=== PATIENT | male | born 1995 | race Hispanic/Latino ===

== ENCOUNTER 2020-01-13 15:40 | Emergency (ER) | payer BC, OTHER ==
[2020-01-13 16:00] LABS: APPEARANCE,URINE Clear (CLEAR); BILIRUBIN,URINE Negative (NEGATIVE); COLOR,URINE Yellow (YELLOW); GLUCOSE, URINE (UA) Negative (NEGATIVE); KETONES,URINE Negative (NEGATIVE); LEUKOCYTE ESTERASE ,URINE Negative (NEGATIVE); NITRATE,URINE Negative (NEGATIVE); OCCULT BLOOD,URINE Trace (NEGATIVE); PH,URINE 6.5 (5.0-8.0); PROTEIN,URINE Negative (NEGATIVE)
[2020-01-13 16:17] LABS: BACTERIA,URINE Rare /HPF (None Seen); RBC,URINE 0-1 /HPF (0-1); SQUAMOUS EPITHELIAL CELL,UR Rare /HPF (0-2); WBC,URINE 0-1 /HPF (0-1)
[2020-01-13] MEDS ORDERED: LIDOCAINE 5% TOPICAL PATCH TP ONE (16:20)
[2020-01-13] MEDS ORDERED: KETOROLAC TROMETHAMINE 60 MG/2 ML VIAL ONE (16:20)
[2020-01-13 16:27] LABS: BASOPHILS % (AUTO) 0.4 % (0.0-5.0); EOSINOPHILS % (AUTO) 3.7 % (0.0-8.0); HEMATOCRIT 44.1 % (42-54); LYMPHOCYTES % (AUTO) 18.5 % (21.0-51.0); MEAN CORPUSCULAR HEMOGLOBIN 29.6 pg (27.0-33.0); MEAN CORPUSCULAR HGB CONC 33.1 g/dL (32.0-36.0); MEAN CORPUSCULAR VOLUME 89.3 fL (79-99); MONOCYTES % (AUTO) 7.5 % (3.0-13.0); NEUTROPHILS % (AUTO) 69.5 % (40.0-77.0); PLATELET COUNT (AUTO) 284 K/uL (130-400); RED BLOOD CELL COUNT(AUTO) 4.94 MIL/uL (4.50-6.20); RED CELL DISTRIBUTION WIDTH 12.8 % (11.0-15.5); WHITE BLOOD COUNT (AUTO) 11.2 K/uL (4.8-10.8)
[2020-01-13 16:38] LABS: CREATININE 0.9 mg/dL (0.5-1.5); POTASSIUM 3.8 mmol/L (3.5-5.1)
[2020-01-13 16:42] LABS: BILIRUBIN,TOTAL 0.5 mg/dL (0.2-1.0); TOTAL PROTEIN, SERUM 7.3 g/dL (6.0-8.3)
== END 2020-01-13 18:34 | disposition home or self-care (01) ==
LOC: EDH 15:40
DX: M62.830 Muscle spasm of back (principal)
CPT/HCPCS: 36415; 76770; 80053; 81001; 83690; 85025; 96372; 99284; J1885

== ENCOUNTER 2022-05-10 15:03 | Emergency (ER) | payer BC ==
[~2022-05-10] VITALS: Ht 177.8 cm; Wt 110.7 kg
[2022-05-10 15:04] VITALS: BP 133/86
[2022-05-10] MEDS ORDERED: KETOROLAC 30MG VIAL (30MG/ML) IM ONE (15:30)
[2022-05-10] MEDS ORDERED: AMOX500C2 PO (16:42)
== END 2022-05-10 17:01 | disposition home or self-care (01) ==
LOC: EDH 15:03
DX: J02.0 Streptococcal pharyngitis (principal); Z20.822 Contact with and (suspected) exposure to COVID-19; Z79.1 Long term (current) use of non-steroidal anti-inflammatories (NSAID)
CPT/HCPCS: 87635; 87880; 96372; 99284; C9803; J1885

== ENCOUNTER 2022-09-23 18:27 | Emergency (ER) | payer BC ==
[~2022-09-23] VITALS: Ht 177.8 cm; Wt 111.1 kg
[~2022-09-23 18:27] MED LIST: AMOX500C2 PO
[2022-09-23 18:31] VITALS: BP 130/82
[2022-09-23] MEDS ORDERED: IBUPROFEN 600 MG TABLET PO ONE (19:00)
[2022-09-23] MEDS ORDERED: IBUPROFEN 600 MG TABLET ONE (19:06)
== END 2022-09-23 19:43 | disposition home or self-care (01) ==
LOC: EDH 18:27
DX: M25.512 Pain in left shoulder (principal); G89.29 Other chronic pain; J06.9 Acute upper respiratory infection, unspecified
CPT/HCPCS: 87804

== ENCOUNTER 2025-05-16 20:16 | Emergency (ER) | payer BC ==
[~2025-05-16] VITALS: Ht 180.3 cm; Wt 118.8 kg
[2025-05-16 20:27] VITALS: BP 124/78; PULSE 91; RESP 20; TEMP 98.4; O2SAT 97
[2025-05-16] MEDS ORDERED: NAPR-1194 PO (20:46)
[2025-05-16] MEDS ORDERED: METH-662 PO (20:46)
--- NOTE | 2025-05-16 20:47 | ERN ---
General Chief Complaint: FOOT INJURY/PAIN Stated Complaint: C/O PAIN TO LEFT HEEL; CONGESTION Time Seen by MD: 20:18 Source: patient History of Present Illness Initial Comments Patient is a 29-year-old male coming in complaining of left foot pain. Patient states his pcp diagnosed with plantar fasciitis states that the medication isnt working. Allergies: Coded Allergies: No Known Drug Allergies (Unverified Allergy, Unknown, 05/10/22) Home Meds Active Scripts Amoxicillin (Amoxicillin) 500 Mg Capsule, 500 MG PO TID for 7 Days, #21 CAP Prov:DALTON RYAN MD 05/10/22 Past Medical History Past Medical History: No Pertinent History Past Surgical History: None ROS Dictation CONSTITUTIONAL: No chills, no fever, no weakness, no diaphoresis, no malaise. HEAD/FACE: No signs of trauma. EENT: No eye pain, no blurred vision, no tearing, no double vision, no ear pain, no ear discharge, no nose pain, no nasal congestion, no throat pain, no throat swelling, no mouth pain. RESPIRATORY: No cough, no orthopnea, no SOB, no stridor, no wheezing. CARDIOVASCULAR: No chest pain, no edema, no palpitations, no syncope. GASTROINTESTINAL/ABDOMINAL: No abdominal pain, no constipation, no diarrhea, no nausea, no vomiting. GENITOURINARY: No abnormal discharge, no dysuria, no frequent urination, no hematuria. No complaints of pain in the genitals. MUSCULOSKELETAL: No back pain, no gout, no joint pain, no joint swelling, muscle pain, no muscle stiffness, no neck pain. INTEGUMENTARY: No change in color, no change in hair/nails, no dryness, no lesion, no lumps, no rash. NEUROLOGICAL/PSYCH: No anxiety, not depressed, no emotional problem, no headac he, no numbness, no pre-existing deficit, no history of seizures, no tremors, no weakness. HEMATOLOGIC/LYMPHATIC: Not anemic, no history of blood clots, no apparent bleeding, no bruising, glands not swollen. All Systems Negative, Except as Noted. Physical Exam Physical Exam Dictation VITAL SIGNS: Reviewed. GENERAL APPEARANCE: Alert, oriented x3, no acute distress, obese. HEAD AND FACE: Non-traumatic. EYES: PERRL, pink conjunctivas, eyelid no trauma, anterior chamber clear. EARS: Pinnas intact and no signs of trauma or erythema. Ear canals clear and no discharge. TMs no erythema. NOSE: No discharge, no bleeding. OROPHARYNX: Mouth normal, teeth no caries, tongue pink. Pharynx clear, no erythema. Tonsils no exudates, no abscesses noted. Mucous membrane moist. NECK: Supple, non-tender, no thyromegaly, no masses, no JVD, no bruits. BREAST: Deferred. CHEST: No tenderness, no crepitus, no paradoxical movement, no retractions. LUNGS: Clear, well-ventilated, symmetric, no rales, no wheezing, no rhonchi, no stridor, good breath sounds bilaterally. HEART: Regular rate, regular rhythm, no murmur, no gallops. VASCULAR: No peripheral edema. ABDOMEN: Soft, positive bowel sounds, nondistended, no guarding, nontender, no rebound, no masses no hepatomegaly, no splenomegaly, no Murcia's sign, no hernias. RECTAL: Deferred. GENITAL: Deferred. NEUROLOGICAL: Normal speech, gross motor function intact, gross sensory function intact. MUSCULOSKELETAL: Neck nontender, full range of motion, back nontender, full range of motion. EXTREMITIES: Nontender, full range of motion. Left pain on palpation plantar tenderness SKIN: Color pink, dry, no turgor, no rash, no lacerations, no abrasions, no contusions. LYMPHATICS: Deferred. MDM MDM: Differential diagnosis: Plantar Fasciitis, fallen arch syndrome Rationale: Tests considered and ordered secondary to shared decision making include: Previous outside records reviewed: Old ER visits. Risk of complication and/or morbidity or mortality of patient management: None Medications-Per medication reconciliation Need for hospitalization: Patient does not meet criteria for hospitalization. Patient is a 29-year-old male coming in to be evaluated for left pain. On physi louis exam there is tenderness in the plantar region. Patient was prescribed dictation and I did advised him appropriate follow up with PCP for ongoing management and treatment. ED Course Orders Procedure Category Date Status Time Orphenadrine Citrate PHA 05/16/25 Transmitted (Norflex) 21:00 Triamcinolone Acet PHA 05/16/25 Transmitted 40mg/Ml 1ml (Kenalog 21:00 Vital Signs Date Time Temp Pulse Resp B/P (MAP) Pulse Ox O2 Delivery O2 Flow Rate FiO2 05/16/25 20:27 98.4 91 20 124/78 97 Room Air* 0 21 05/16/25 20:18 98.4 91 20 124/78 97 Room Air DX & DISP Disposition: Discharge Departure Impression: Primary Impression: Plantar fasciitis of left foot Condition: Stable Scripts Methocarbamol (Robaxin) 750 Mg Tab 1 TAB PO BID for 5 Days, #10 TAB 0 Refills Prov: DALTON RYAN MD 05/16/25 Naproxen (Naproxen) 500 Mg Tablet 1 TAB PO BID for pain for 7 Days, #14 TAB 0 Refills Prov: DALTON RYAN MD 05/16/25 Additional Instructions: FOLLOW-UP WITH PRIMARY CARE PROVIDER IN 1 TO 2 DAYS. TAKE MEDICATIONS DIRECTED HERE IN THE EMERGENCY ROOM. OKAY TO CONTINUE HOME MEDICATIONS UNLESS OTHERWISE DISCUSSED DURING YOUR VISIT IN THE EMERGENCY ROOM TODAY. RETURN TO YOUR NEAREST EMERGENCY ROOM IF SYMPTOMS WORSEN OR IF THERE IS NO IMPROVEMENT. CALL 911 IF YOU NEED IMMEDIATE ASSISTANCE. TAKE TYLENOL [id number] NEEDED AND IF NO CONTRAINDICATIONS ARE PRESENT. INCREASE ORAL HYDRATION. A WOUND CULTURE OR URINE CULTURE WAS ORDERED HERE IN THE EMERGENCY ROOM DEPARTMENT PLEASE FOLLOW-UP WITH PRIMARY CARE PROVIDER AND ADVISE THEM TO GET REPORTS FROM OUR FACILITY. IF YOU HAD ANY DAYO WRAP/SPLINTS THAT WERE APPLIED HERE, PLEASE DO NOT REMOVE THEM UNTIL YOU SEE YOUR PRIMARY CARE OR SPECIALTY. Referrals: Referrals: SELF,REFERRAL (PCP) FLORESITA SAMANIEGO MD Time of Disposition: 20:45 DALTON RYAN MD May 16, 2025 20:47
[2025-05-16] MEDS: TRIAMCINOLONE ACETONIDE 40 MG/ML 1ML VIAL IM ONE (20:48)
[2025-05-16] MEDS: ORPHENADRINE 60MG/2ML IM ONE (20:48)
== END 2025-05-16 20:59 | disposition home or self-care (01) ==
LOC: EDH 20:16
DX: M72.2 Plantar fascial fibromatosis (principal)
CPT/HCPCS: 99284; 96372 ×2; J3301; J2360